=== PATIENT | male | born 1985 | race Caucasian/White ===

== ENCOUNTER 2020-12-01 03:04 | Emergency (ER) | payer OTHER ==
[2020-12-01 03:36] LABS: BILIRUBIN NEGATIVE (NEGATIVE); BLOOD NEGATIVE Ery/uL (NEGATIVE); CLARITY CLEAR (CLEAR); COLOR YELLOW (YELLOW); GLUCOSE (U) 1+ mg/dL (NORMAL); LEUKOCYTES NEGATIVE Leu/uL (NEGATIVE); NITRITE NEGATIVE (NEGATIVE); PROTEIN NEGATIVE (NEGATIVE); SPECIFIC GRAVITY 1.015 (1.001-1.030); UROBILINOGEN 0.2 mg/dL (0.2-1.0); pH 5.5 (5.0-9.0)
[2020-12-01] MEDS ORDERED: CYCLOBENZAPRINE10 MG PO (03:50)
[2020-12-01] MEDS ORDERED: NAPROXEN500 MG PO (03:50)
== END 2020-12-01 04:11 | disposition home or self-care (01) ==
LOC: FER 03:04
PROVIDERS: Emergency Medicine
DX: M54.5 Low back pain (principal); E11.9 Type 2 diabetes mellitus without complications; I10 Essential (primary) hypertension; Z79.84 Long term (current) use of oral hypoglycemic drugs; Z79.899 Other long term (current) drug therapy
CPT/HCPCS: 72110; 81003

== ENCOUNTER 2021-11-06 19:18 | Emergency (ER) | payer OTHER ==
[~2021-11-06 19:18] MED LIST: CYCLOBENZAPRINE10 MG PO; NAPROXEN500 MG PO
[2021-11-06 20:37] LABS: BASOPHIL 0.6 % (0-2); EOSINOPHIL 0.8 % (0-5); HCT 50.5 % (42.0-52.0); HGB 17.3 g/dl (13.2-18.0); LYMPHOCYTE 10.3 % (15-48); MCH 29.5 pg (25.0-31.0); MCHC 34.3 g/dL (32.0-36.0); MCV 86.2 fL (78.0-100.0); MONOCYTE 3.9 % (0-12); MPV 10.6 fL (6.0-9.5); NRBC 0; PLT 302 K/uL (150-400); RBC 5.86 M/uL (4.70-6.00); RDW 12.7 % (11.5-14.0); WBC 14.4 K/uL (4.0-10.5)
[2021-11-06 20:55] LABS: BUN/CREAT RATIO (CALC) 13.4 RATIO; CREATININE 1.79 mg/dL (0.67-1.17); POTASSIUM 4.2 mmol/L (3.5-5.1)
[2021-11-06 22:15] LABS: BILIRUBIN NEGATIVE (NEGATIVE); BLOOD NEGATIVE Ery/uL (NEGATIVE); CLARITY CLEAR (CLEAR); COLOR YELLOW (YELLOW); GLUCOSE (U) 3+ mg/dL (NORMAL); LEUKOCYTES NEGATIVE Leu/uL (NEGATIVE); NITRITE NEGATIVE (NEGATIVE); PROTEIN 1+ mg/dL (NEGATIVE); SPECIFIC GRAVITY 1.025 (1.001-1.030)
== END 2021-11-06 23:13 | disposition home or self-care (01) ==
LOC: FER 19:18
PROVIDERS: Nurse Practitioner Family
DX: E11.65 Type 2 diabetes mellitus with hyperglycemia (principal); E86.0 Dehydration; N17.9 Acute kidney failure, unspecified; I10 Essential (primary) hypertension; Z79.84 Long term (current) use of oral hypoglycemic drugs; Z79.899 Other long term (current) drug therapy; Z28.310 Unvaccinated for COVID-19
CPT/HCPCS: 36415; 80048; 81003; 82009; 83036; 84484; 85025; 93005; J7030

== ENCOUNTER 2022-01-26 13:19 | Emergency (ER) | payer OTHER ==
[2022-01-26 13:53] LABS: BASOPHIL 1.1 % (0-2); HCT 47.9 % (42.0-52.0); HGB 17.1 g/dl (13.2-18.0); LYMPHOCYTE 25.6 % (15-48); MCH 30.1 pg (25.0-31.0); MCHC 35.7 g/dL (32.0-36.0); MCV 84.3 fL (78.0-100.0); MONOCYTE 6.1 % (0-12); MPV 10.3 fL (6.0-9.5); NEUTROPHIL 61.7 % (41-80); NRBC 0; PLT 292 K/uL (150-400); RBC 5.68 M/uL (4.70-6.00); RDW 12.8 % (11.5-14.0); WBC 10.2 K/uL (4.0-10.5)
[2022-01-26 13:59] LABS: PROTHROMBIN TIME 12.9 SECONDS (11.9-13.9)
[2022-01-26 14:09] LABS: ALBUMIN 3.4 g/dL (3.4-5.0); BILIRUBIN - TOTAL 0.4 mg/dL (0.2-1.0); CREATININE 0.83 mg/dL (0.67-1.17); GLOBULIN (CALCULATION) 4.3 g/dL; POTASSIUM 4.2 mmol/L (3.5-5.1); TOTAL PROTEIN 7.7 g/dL (6.4-8.2)
== END 2022-01-26 16:14 | disposition home or self-care (01) ==
LOC: FER 13:19
PROVIDERS: Physician Assistant
DX: R07.89 Other chest pain (principal); E11.9 Type 2 diabetes mellitus without complications; I10 Essential (primary) hypertension; E66.9 Obesity, unspecified; Z28.310 Unvaccinated for COVID-19; Z79.84 Long term (current) use of oral hypoglycemic drugs
CPT/HCPCS: 36415; 71046; 80053; 84484; 85025; 85610; 93005